=== PATIENT | female | born 1975 | race Caucasian/White ===

== ENCOUNTER 2016-12-31 15:59 | Emergency (ER) | payer OTHER ==
[~2016-12-31] VITALS: Ht 165.1 cm; Wt 79.1 kg
[2016-12-31 15:59] VITALS: BP 120/73; TEMP 98.7
[~2016-12-31 15:59] MED LIST: CENTRUM SILVER1 TA1 PO; CEPHALEXIN500 M1 PO; DECADRON4 MG PO; EPA-CON500 MG PO; LORTAB 5/500 501 TAB PO; NO HOME MEDICATIONS; PREDNISONE20 MG PO; PRILOSEC10 MG PO; ZITHROMAX 250M250 MG PO
[2016-12-31 16:49] LABS: BASO % 0.4 % (0.0-2.0); EOS # 0.2 (0.0-0.7); EOS % 1.7 % (0-4.0); GRAN # 6.1 (1.4-6.5); GRAN % 64.3 % (42.2-75.2); HEMATOCRIT 42.1 % (37.0-47.0); LYMPH # 2.7 (1.2-3.4); MEAN CELL VOLUME 93 fl (80.0-100.0); MEAN CORPUSCULAR HEMOGLOBIN 31 pg (27.0-31.0); MEAN CORPUSCULAR HGB CONC 33 g/dl (33.0-37.0); MEAN PLATELET VOLUME 10.2 fl (7.4-10.4); MONO # 0.5 (0.1-0.6); MONO % 5.4 % (1.7-9.3); PLATELET COUNT 212 K/mm3 (130-400); RED BLOOD COUNT 4.53 M/mm3 (4.10-5.30); REDCELL DISTRIBUTION WIDTH-CV 11.6 % (11.5-14.5); WHITE BLOOD COUNT 9.5 K/mm3 (4.8-10.8)
[2016-12-31 16:53] LABS: PH 6 (5-8); SQUAMOUS EPITHELIAL 0-2 /hpf; URINE APPEARANCE Clear; URINE BACTERIA None Seen /hpf; URINE BILIRUBIN Negative (NEGATIVE); URINE BLOOD Negative (NEGATIVE); URINE COLOR Yellow; URINE GLUCOSE Negative (NEGATIVE); URINE KETONE Negative (NEGATIVE); URINE RBC 0-2 /hpf; URINE UROBILINOGEN Negative (NEGATIVE); URINE WBC 0-2 /hpf
[2016-12-31] MEDS ORDERED: BACTROBAN15 GM TOP (16:58)
[2016-12-31 17:00] LABS: ADJUSTED CALCIUM 8.8 mg/dL (8.4-10.2); ALBUMIN 4.1 gm/dL (3.5-5.0); BILIRUBIN,TOTAL 0.5 mg/dL (0.0-1.0); C-REACTIVE PROTEIN 1.2 mg/dL (0.0-0.9); CALCIUM 8.9 mg/dL (8.4-10.2); CREATININE, serum 0.66 mg/dL (0.52-1.25); POTASSIUM 4.1 mmol/L (3.4-5.0); TOTAL PROTEIN 7.6 gm/dL (6.4-8.2)
[2016-12-31 17:26] VITALS: PULSE 73
== END 2016-12-31 17:27 | disposition home or self-care (01) ==
LOC: COL.ER 15:59
PROVIDERS: Physician Assistant
DX: R14.0 Abdominal distension (gaseous) (principal); L73.9 Follicular disorder, unspecified

== ENCOUNTER 2017-11-24 03:05 | Inpatient (IN) | payer SELFPAY ==
[~2017-11-24] VITALS: Ht 165.1 cm; Wt 92.3 kg
[2017-11-24] VITALS (37 sets, daily range): BP systolic 109–144; BP diastolic 55–84; PULSE 72–107; TEMP 98.1–98.4
[~2017-11-24 03:05] MED LIST changes: +BACTROBAN15 GM TOP
[2017-11-24] MEDS ORDERED: PRENATAL1 TA7 PO (03:27)
[2017-11-24] MEDS ORDERED: AMOXICILLIN 50500 MG PO (03:27)
[2017-11-24 07:25] LABS: BASO % 0.3 % (0.0-2.0); EOS # 0.1 (0.0-0.7); EOS % 0.8 % (0-4.0); GRAN # 10.8 (1.4-6.5); GRAN % 73.9 % (42.2-75.2); HEMATOCRIT 38.3 % (37.0-47.0); HEMOGLOBIN 12.7 g/dl (12.5-16.0); LYMPH # 2.8 (1.2-3.4); LYMPH % 18.9 % (20.0-51.0); MEAN CELL VOLUME 88 fl (80.0-100.0); MEAN CORPUSCULAR HEMOGLOBIN 29 pg (27.0-31.0); MEAN CORPUSCULAR HGB CONC 33 g/dl (33.0-37.0); MEAN PLATELET VOLUME 11.8 fl (7.4-10.4); MONO # 0.8 (0.1-0.6); MONO % 5.6 % (1.7-9.3); PLATELET COUNT 195 K/mm3 (130-400); RED BLOOD COUNT 4.34 M/mm3 (4.10-5.30); REDCELL DISTRIBUTION WIDTH-CV 14.9 % (11.5-14.5)
[2017-11-25 04:00] VITALS: BP 123/76; PULSE 96; TEMP 97.8
[2017-11-25 08:37] VITALS: BP 128/63; PULSE 98; TEMP 97.8
[2017-11-25] MEDS ORDERED: IBU600 MG PO (08:49)
== END 2017-11-25 15:06 | disposition home or self-care (01) | DRG 775 ==
LOC: LDRO 03:05 → LDR 06:00 → OB 15:40
PROVIDERS: Student in an Organized Health Care Education/Training Program
PROC: 10D07Z6 Extraction of Products of Conception, Vacuum, Via Natural or Artificial Opening (ICD-10-PCS; principal; 2017-11-24)
PROC: 0HQ9XZZ Repair Perineum Skin, External Approach (ICD-10-PCS; 2017-11-24)
DX: O66.0 Obstructed labor due to shoulder dystocia (principal); O76 Abnormality in fetal heart rate and rhythm complicating labor and delivery; O70.0 First degree perineal laceration during delivery; Z3A.38 38 weeks gestation of pregnancy; Z37.0 Single live birth
CPT/HCPCS: J2590; J2795; J7120

== ENCOUNTER 2021-02-13 13:36 | Outpatient (RCR) | payer OTHER ==
[~2021-02-13 13:36] MED LIST changes: +AMOXICILLIN 50500 MG PO; +IBU600 MG PO; +PRENATAL1 TA7 PO
== END 2021-05-14 | disposition home or self-care (01) ==
LOC: WSPT
DX: I89.0 Lymphedema, not elsewhere classified (principal); Z98.890 Other specified postprocedural states

== ENCOUNTER 2021-04-10 11:30 | Outpatient (RCR) | payer OTHER | END 2021-07-09 | disposition home or self-care (01) | LOC: WSOH | DX: S60.211A Contusion of right wrist, initial encounter (principal); S60.221A Contusion of right hand, initial encounter; Z98.890 Other specified postprocedural states; Y99.0 Civilian activity done for income or pay ==

== ENCOUNTER 2022-01-27 18:58 | Emergency (ER) | payer SELFPAY ==
[~2022-01-27] VITALS: Ht 165.1 cm; Wt 75.9 kg
[2022-01-27] MEDS ORDERED: TESSALON PERLE200 MG PO (20:57)
[2022-01-27] MEDS ORDERED: PREDNISONE20 MG PO (20:57)
[2022-01-27 21:15] VITALS: BP 134/65; PULSE 85; TEMP 98.1
== END 2022-01-27 21:15 | disposition home or self-care (01) ==
LOC: COL.ER 18:58
DX: J20.9 Acute bronchitis, unspecified (principal); Z20.822 Contact with and (suspected) exposure to COVID-19; Z79.899 Other long term (current) drug therapy

== ENCOUNTER → 2022-05-21 | Outpatient (CLI) | payer OTHER ==
[~2022-05-21] MED LIST changes: +TESSALON PERLE200 MG PO
== END ==
LOC: COL.RAD 10:23
DX: M25.511 Pain in right shoulder (principal)

== ENCOUNTER → 2022-06-14 | Outpatient (CLI) | payer OTHER | LOC: MC.RAD 06:55 | DX: N63.20 Unspecified lump in the left breast, unspecified quadrant (principal); N64.4 Mastodynia ==

== ENCOUNTER → 2023-02-05 | Outpatient (CLI) | payer OTHER | LOC: COL.RAD 07:57 | DX: M25.411 Effusion, right shoulder (principal); M19.011 Primary osteoarthritis, right shoulder; Z98.890 Other specified postprocedural states ==